=== PATIENT | female | born 2000 | race Two or more races ===

== ENCOUNTER 2023-12-30 11:09 | Emergency (ER) | payer MEDICAID, OTHER ==
[~2023-12-30] VITALS: Ht 157.5 cm; Wt 67.4 kg
[2023-12-30 11:53] LABS: Urine Bacteria None Seen /hpf (None Seen)
[2023-12-30 12:20] LABS: Urine Blood Negative /uL (Negative); Urine Clarity Clear (Clear); Urine Color Light-Yellow (Yellow); Urine Mucus FEW (None Seen); Urine Protein, UAD Negative (Negative); Urine Specific Gravity 1.017 (1.001-1.035); Urine Urobilinogen Normal (Negative); Urine WBC 4 /hpf (0 - 5)
[2023-12-30 12:26] LABS: Basophils # (auto) 0 10 ^3/uL (0-0.2); Basophils % (auto) 0.2 % (0.0-2.0); Eosinophils # (auto) 0.1 10 ^3/uL (0-0.8); Eosinophils % (auto) 1.4 % (0.0-7.0); Hematocrit 36.5 % (36.0-46.0); Hemoglobin 12.6 g/dL (12.2-16.2); Lymphocytes # (auto) 1.6 10 ^3/uL (0.4-5.4); Lymphocytes % (auto) 18.3 % (10.0-50.0); Mean Corpuscular Hemoglobin 30.9 pg (28.0-32.0); Mean Corpuscular Hgb Conc. 34.5 g/dL (32.0-36.0); Mean Corpuscular Volume 89.6 fL (80.0-100.0); Monocytes # (auto) 0.4 10 ^3/uL (0-1.3); Monocytes % (auto) 4.9 % (0.0-12.0); Neutrophils # (auto) 6.6 10 ^3/uL (1.6-8.6); Neutrophils % (auto) 75.2 % (37.0-80.0); Nucleated Red Blood Cells % 0.1 %; Platelet Count (auto) 242 10^3/uL (140-450); Red Blood Cells 4.08 10^6/uL (4.0-5.20); Red Cell Distribution Width 13.5 % (11.8-14.3); White Blood Cell 8.8 10^3/uL (4.4-10.8)
[2023-12-30 12:44] LABS: Alkaline Phosphatase 53 U/L (46-116); Anion Gap 6 (5-15); Aspartate Aminotransferase 9 U/L (13-40); BUN/Creatinine Ratio 8.7 (10.0-20.0); Blood Urea Nitrogen 6 mg/dL (9-23); Calcium 9.1 mg/dL (8.7-10.4); Carbon Dioxide 24 mmol/L (20-30); Chloride 109 mmol/L (98-107); Glucose 81 mg/dL (74-106); Lipase 47 U/L (12-53); Potassium 3.7 mmol/L (3.5-5.1); Sodium 139 mmol/L (136-145)
[2023-12-30 12:45] LABS: Alanine Aminotransferase < 9 U/L (7-40); Bilirubin, Total 0.7 mg/dL (0.2-1.0); Total Protein 6.7 g/dL (5.7-8.2)
[2023-12-30] MEDS: MECLIZINE HCL 25 MG TAB PO ONE (13:28)
[2023-12-30] MEDS: ONDANSETRON HCL 4 MG/2 ML VIAL IV ONE (13:28)
[2023-12-30] MEDS: SODIUM CHLORIDE 0.9% 500 ML IV ONE (13:28)
[2023-12-30] MEDS ORDERED: ZOFR4T PO (14:42)
[2023-12-30 15:39] VITALS: BP 103/59; PULSE 74; RESP 16; TEMP 97.6; O2SAT 100
== END 2023-12-30 15:41 | disposition home or self-care (01) ==
LOC: ER 11:09
DX: O21.8 Other vomiting complicating pregnancy (principal); R10.2 Pelvic and perineal pain; R42 Dizziness and giddiness; Z3A.01 Less than 8 weeks gestation of pregnancy
CPT/HCPCS: 36415; 80053; 81001; 83605; 83690; 84702; 85025; 96361; 96374; 99283; J2405; J7040; J8597